=== PATIENT | male | born 2000 | race African-American/Black ===

== ENCOUNTER 2018-07-13 14:05 | Emergency (ER) | payer OTHER ==
[~2018-07-13] VITALS: Ht 188 cm; Wt 79.5 kg
[2018-07-13] MEDS ORDERED: AZITHROMYCIN 250 MG TAB PO ONE (15:45)
[2018-07-13] MEDS ORDERED: LIDOCAINE 1% SDV 5 ML VIAL DILUENT ONE (15:45)
[2018-07-13] MEDS ORDERED: cefTRIAXone SOD 250 MG VIAL (J0696) IM ONE (15:45)
[2018-07-13 16:04] VITALS: BP 137/71
[2018-07-13 16:11] LABS: CHLAMYDIA DNA AMPLIFICATION NEGATIVE (NEGATIVE); GC DNA AMPLIFICATION POSITIVE (NEGATIVE)
== END 2018-07-13 16:05 | disposition home or self-care (01) ==
LOC: M ED 14:05
DX: N34.1 Nonspecific urethritis (principal); F17.200 Nicotine dependence, unspecified, uncomplicated
CPT/HCPCS: 87491; 87591; 96372; 99283; J0696